=== PATIENT | female | born 1985 ===

== ENCOUNTER 2021-12-08 10:50 | Outpatient (CLI) | payer OTHER | END 2021-12-08 11:36 | disposition home or self-care (01) | LOC: NST 10:50 | PROVIDERS: ATTEND Obstetrics & Gynecology | DX: Z34.83 Encounter for supervision of other normal pregnancy, third trimester (principal) ==

== ENCOUNTER 2021-12-17 12:15 | Inpatient (IN) | payer OTHER ==
[~2021-12-17] VITALS: Ht 157.5 cm; Wt 68.0 kg
[2021-12-28] MEDS ORDERED: PRENATABS RX T1 EACH PO (10:46)
== END 2021-12-30 13:03 | disposition home or self-care (01) | DRG 807 ==
LOC: EDSTATUS 12:15 → EDUNIT# 12:15 → OB/GYN 12-28 10:02 → LDR 12-28 10:02 → OB/GYN 12-28 16:54
PROVIDERS: ADMIT Obstetrics & Gynecology; ATTEND Obstetrics & Gynecology
PROC: 10E0XZZ Delivery of Products of Conception, External Approach (ICD-10-PCS; principal; 2021-12-28)
PROC: 0KQM0ZZ Repair Perineum Muscle, Open Approach (ICD-10-PCS; 2021-12-28)
PROC: 4A1HXCZ Monitoring of Products of Conception, Cardiac Rate, External Approach (ICD-10-PCS; 2021-12-28)
DX: O70.1 Second degree perineal laceration during delivery (principal); Z37.0 Single live birth; Z3A.38 38 weeks gestation of pregnancy; Z20.822 Contact with and (suspected) exposure to COVID-19

== ENCOUNTER → 2021-12-19 | Outpatient (CLI) | payer OTHER | END | disposition home or self-care (01) | LOC: NST 09:49 | PROVIDERS: ATTEND Obstetrics & Gynecology | DX: Z34.83 Encounter for supervision of other normal pregnancy, third trimester (principal) ==